=== PATIENT | male | born 1955 | race Caucasian/White ===

== ENCOUNTER → 2023-06-02 | Outpatient (CLI) | payer MEDICARE ==
[~2023-06-02] MED LIST: AIRDUO RESPICL1 EAC1 IH; ALDACTONE 25MG25 M1 PO; COZAAR 25MG25 MG/TAB PO; ELIQUIS 5MG PO; JARDIANCE10 PO; K-DUR20 MEQ PO; LANOXIN 0.25M0.25 MG PO; LASIX 40MG TABL40 MG PO; MOBIC 7.5MG7.5 MG PO; NITRO-DUR0.4 MG/PAT TD; NORVASC 10MG10 MG PO; PACERONE200 MG PO; PREDNISONE20 MG PO; PRINZIDE 25 MG-1 TAB PO; PROAIR HFA0.09 MG/AC IH; PROTONIX 40MG T40 MG PO; RT ADVAIR HFA 1112 G IH; SPIRIVA RE2.5 MCG/Ac IH; TIOTROPIUM IH; TOPROL XL 25MG25 MG PO
[2023-06-02 10:00] LABS: ALBUMIN 3.7 gm/dL (3.4-4.8); BILIRUBIN,TOTAL 0.8 mg/dL (0.2-1.2); CALCIUM 9.1 mg/dL (8.4-10.2); CREATININE, serum 1.21 mg/dL (0.72-1.25); POTASSIUM 3.8 mmol/L (3.5-4.5); TOTAL PROTEIN 6.9 gm/dL (6.2-8.1)
== END ==
LOC: COL.LAB 09:20
PROVIDERS: Nurse Practitioner
DX: Z51.81 Encounter for therapeutic drug level monitoring (principal)

== ENCOUNTER → 2023-09-07 | Outpatient (CLI) | payer MEDICARE, MEDICAID ==
[~2023-09-07] MED LIST changes: +BYSTOLIC2.5 MG PO; +CORDARONE200 MG/TAB PO; +DAZIDOX10 MG PO; +DESYREL 50MG50 MG PO; +FLEXERIL 1010 MG/TAB PO; +FOLIC ACID 11 MG/TA1 PO; +KLOR-CON M2020 MEQ PO; +MOBIC 7.5MG7.5 MG; +NARCAN4 MG NS; +NEURONTIN100 MG/CAP PO; +SUDAFED 12 HOU120 MG PO; +THIAMINE 1100 MG/TAB PO; +TYLENOL 500MG500 MG PO; +VOLTAREN GEL 1%1 TU TP; +WALKER MC
== END ==
LOC: COL.RAD 12:25
DX: M25.552 Pain in left hip (principal)